=== PATIENT | female | born 1940 | race Caucasian/White ===

== ENCOUNTER → 2016-06-15 11:50 | Day surgery (SDC) | payer MEDICARE, OTHER ==
[~2016-06-15 11:50] MED LIST: CO Q-1030 MG PO; FISH OIL 1,0001 CA1 PO; KENALOG IN ORABA5 GM TOPICAL; LEVOTHYROXINE75 MCG PO; NASACORT10.8 ML NASAL; RESTORIL15 MG PO; ZANTAC150 MG PO
== END | disposition home or self-care (01) ==
LOC: D.OPS 11:50
DX: G57.01 Lesion of sciatic nerve, right lower limb (principal); E89.0 Postprocedural hypothyroidism; M19.049 Primary osteoarthritis, unspecified hand; Z88.1 Allergy status to other antibiotic agents; Z88.5 Allergy status to narcotic agent; Z79.899 Other long term (current) drug therapy

== ENCOUNTER 2016-06-22 12:05 | Day surgery (SDC) | payer MEDICARE, OTHER ==
[~2016-06-22] VITALS: Ht 157.5 cm; Wt 44.1 kg
[2016-06-22] MEDS ORDERED: RESTORIL15 MG PO (13:10)
[2016-06-22] MEDS ORDERED: LEVOTHYROXINE75 MCG PO (13:10)
[2016-06-22] MEDS ORDERED: KENALOG IN ORABA5 GM TOPICAL (13:11)
[2016-06-22] MEDS ORDERED: ZANTAC150 MG PO (13:12)
[2016-06-22] MEDS ORDERED: NASACORT10.8 ML NASAL (13:13)
[2016-06-22] MEDS ORDERED: FISH OIL 1,0001 CA1 PO (13:13)
[2016-06-22] MEDS ORDERED: CO Q-1030 MG PO (13:15)
[2016-06-22 14:18] VITALS: BP 142/74; Ht 157.5 cm; Wt 44.1 kg
--- NOTE | 2016-06-22 14:22 | NUR ---
1315-DR GALVEZ IN ROOM SPEAKING WITH PATIENT. PT RATES HER PAIN 5-7/10. INFORMED CONSENT OBTAINED. PT PLACED IN PROPER POSITION AND PREPPED BY DR GALVEZ. TIMEOUT DONE AT 1348 1350-PROCEDURE STARTED UNDER ULTRASOUND GUIDED BY DR GALVEZ 1353- PROCEDURE COMPLETED PLANNED. 1400-PT STATES HER PAIN IS 3-4/10 1410-DR GALVEZ [facility] ROOM 1415-PT DISCHARGED HOME IN STABLE CONDITION WITH A SCRIPT FOR PT AND AN APPOINTMENT MADE FOR June AT 12:00 FOR #3 INJECTION COPY HANDED TO PATIENT. AND PT STATES UNDERSTANDING. PT DISCHARGED HOME IN STABLE CONDITION. EXCORTED OUT VIA WHEELCHAIR
== END 2016-06-22 14:15 | disposition home or self-care (01) ==
LOC: D.OPS 12:05
DX: M46.1 Sacroiliitis, not elsewhere classified (principal)